=== PATIENT | female | born 1995 | race American Indian/Alaskan Native ===

== ENCOUNTER 2016-12-12 02:13 | Inpatient (IN) | payer MEDICAID ==
[2016-12-12] MEDS ORDERED: Lactated Ringers 1,000 ML ONE (02:53)
[2016-12-12] MEDS: Lactated Ringers 1,000 ML IV SCH ×5 (03:30→20:22)
[2016-12-12] MEDS ORDERED: Lidocaine 1% 50 ML MDV INJECT ONE (04:14)
[2016-12-12] MEDS ORDERED: Ondansetron 4 MG/2 ML SDV IVPUSH PRN (04:14)
[2016-12-12] MEDS ORDERED: Nalbuphine 20 MG/1 ML Amp IVPUSH PRN (04:14)
[2016-12-12] MEDS ORDERED: Sodium Chloride 0.9% 10 ML Syringe FLUSH PRN (04:14)
[2016-12-12] MEDS ORDERED: Oxytocin/Lactated Ringers 10 UNIT/1,000 ML BAG IV SCH ×3 (04:15→19:45)
[2016-12-12] MEDS ORDERED: ePHEDrine 50 MG/ML SDV IVPUSH PRN (08:13)
[2016-12-12] MEDS ORDERED: diphenhydrAMINE 50 MG/ML SDV IVPUSH PRN (08:13)
[2016-12-12] MEDS ORDERED: fentaNYL 100 MCG/2 ML SDV EPIDUR PRN (08:13)
[2016-12-12] MEDS ORDERED: Bupivacaine/fentaNYL/NS 100 ML Bag EPIDUR SCH (08:15)
--- NOTE | 2016-12-12 08:57 | PCM.PREANE ---
Preanesthetic Assessment - Anesthesia/Transfusion/Family Hx Anesthesia History: Prior Anesthesia Without Reaction Family History of Anesthesia Reaction: No Transfusion History: No Prior Transfusion(s) - Review of Systems General: No Symptoms Pulmonary: No Symptoms Cardiovascular: No Symptoms, Dyspnea on Exertion Gastrointestinal: No symptoms Neurological: No Symptoms Other: Reports: None - Physical Assessment Pulse: 84 O2 Sat by Pulse Oximetry: 92 Respiratory Rate: 20 Blood Pressure: 124/63 Temperature: 36.6 C Height: 1.73 m Weight: 134.263 kg ASA Class: 2 Mental Status: Alert & Oriented x3 Airway Class: Mallampati = 1 Dentition: Reports: Normal Dentition Thyro-Mental Finger Breadths: 3 Mouth Opening Finger Breadths: 3 ROM/Head Extension: Full Lungs: Clear to auscultation, Normal respiratory effort Cardiovascular: Regular Rate, Regular Rhythm - Lab Values: Laboratory Last Values WBC 14.02 K/mm3 (3.98-10.04) H 12/12/16 04:34 RBC 3.76 M/mm3 (3.98-5.22) L 12/12/16 04:34 Hgb 10.9 gm/L (11.2-15.7) L 12/12/16 04:34 Hct 32.6 % (34.1-44.9) L 12/12/16 04:34 MCV 86.7 fl (79.4-94.8) 12/12/16 04:34 MCH 29.0 pg (25.6-32.2) 12/12/16 04:34 MCHC 33.4 g/dl (32.2-35.5) 12/12/16 04:34 RDW Std Deviation 42.8 fL (36.4-46.3) 12/12/16 04:34 Plt Count 255 K/mm3 (182-369) 12/12/16 04:34 MPV 10.0 fl (9.4-12.3) 12/12/16 04:34 Neut % (Auto) 82.0 % (34.0-71.1) H 12/12/16 04:34 Lymph % (Auto) 11.6 % (19.3-51.7) L 12/12/16 04:34 [place] % (Auto) 6.0 % (4.7-12.5) 12/12/16 04:34 Eos % (Auto) 0.1 (0.7-5.8) L 12/12/16 04:34 Baso % (Auto) 0.1 % (0.1-1.2) 12/12/16 04:34 Neut # (Auto) 11.50 K/mm3 (1.56-6.13) H 12/12/16 04:34 Lymph # (Auto) 1.63 K/mm3 (1.18-3.74) 12/12/16 04:34 [place] # (Auto) 0.84 K/mm3 (0.24-0.36) H 12/12/16 04:34 Eos # (Auto) 0.01 K/mm3 (0.04-0.36) L 12/12/16 04:34 Baso # (Auto) 0.01 K/mm3 (0.01-0.08) 12/12/16 04:34 - Allergies Allergies/Adverse Reactions: Allergies Allergy/AdvReac Type Severity Reaction Status Date / Time No Known Allergies Allergy Verified 12/12/16 06:39 - Acknowledgements Anesthesia Type Planned: Epidural Pt an Appropriate Candidate for the Planned Anesthesia: Yes Alternatives and Risks of Anesthesia Discussed w Pt/Guardian: Yes Pt/Guardian Understands and Agrees with Anesthesia Plan: Yes PreAnesthesia Questionnaire Gastrointestinal History: Reports: GERD 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: - SUBSTANCE USE Smoking Status *Q: Never Smoker Second Hand Smoke Exposure: No - HOME MEDS Home Medications: Home Meds PNV95/Ferrous Fumarate/FA [ Tablet] 1 each PO DAILY 10/28/16 [History] - CURRENT (IN HOUSE) MEDS Current Meds: Current Medications Diphenhydramine HCl (Benadryl) 25 mg IVPUSH Q6H PRN PRN Reason: Itching Ephedrine Sulfate (Ephedrine Sulfate) 5 mg IVPUSH ASDIRECTED PRN PRN Reason: HYPOTENTSION Fentanyl (Sublimaze) 100 mcg EPIDUR Q3H PRN PRN Reason: PAIN Last Admin: 12/12/16 08:43 Dose: 100 mcg Fentanyl/Bupivacaine HCl (Fentanyl/Bupivacaine/Ns 2 Mcg-0.125% 100 Ml) 100 ml EPIDUR ASDIRECTED ALBERTO Last Admin: 12/12/16 08:44 Dose: 100 ml Lactated Ringer's (Ringers, Lactated) 1,000 mls @ 100 mls/hr IV ASDIRECTED ALBERTO Last Admin: 12/12/16 08:04 Dose: 100 mls/hr Oxytocin/Lactated Ringer's (Pitocin In Lr 10 Units/1,000 Ml) 10 unit in 1,000 mls @ 500 mls/hr IV TITRATE ALBERTO Nalbuphine HCl (Nubain) 10 mg IVPUSH Q2H PRN PRN Reason: Pain (moderate 4-6) Ondansetron HCl (Zofran) 4 mg IVPUSH Q4H PRN PRN Reason: Nausea/Vomiting Sodium Chloride (Saline Flush) 10 ml FLUSH ASDIRECTED PRN PRN Reason: Keep Vein Open Discontinued Medications Lactated Ringer's (Ringers, Lactated) Confirm Administered Dose 1,000 mls @ as directed .ROUTE .STK-MED ONE Stop: 12/12/16 02:54 Last Admin: 12/12/16 06:53 Dose: Not Given Lidocaine HCl (Xylocaine 1%) 50 ml INJECT ONETIME ONE Stop: 12/12/16 04:15 Last Admin: 12/12/16 06:54 Dose: Not Given
--- NOTE | 2016-12-12 13:46 | PCM.PNLD ---
Labor Progress Note - VS & Meds Vital Signs: Last Vital Signs Temp 36.6 C 12/12/16 08:57 Pulse 84 12/12/16 08:57 Resp 20 12/12/16 08:57 BP 124/63 12/12/16 08:57 Pulse Ox 92 L 12/12/16 08:57 Active Medications: Current Medications Diphenhydramine HCl (Benadryl) 25 mg IVPUSH Q6H PRN PRN Reason: Itching Ephedrine Sulfate (Ephedrine Sulfate) 5 mg IVPUSH ASDIRECTED PRN PRN Reason: HYPOTENTSION Fentanyl (Sublimaze) 100 mcg EPIDUR Q3H PRN PRN Reason: PAIN Last Admin: 12/12/16 08:43 Dose: 100 mcg Fentanyl/Bupivacaine HCl (Fentanyl/Bupivacaine/Ns 2 Mcg-0.125% 100 Ml) 100 ml EPIDUR ASDIRECTED ALBERTO Last Admin: 12/12/16 08:44 Dose: 100 ml Lactated Ringer's (Ringers, Lactated) 1,000 mls @ 100 mls/hr IV ASDIRECTED [facility] Last Admin: 12/12/16 08:59 Dose: 100 mls/hr Oxytocin/Lactated Ringer's (Pitocin In Lr 10 Units/1,000 Ml) 10 unit in 1,000 mls @ 500 mls/hr IV TITRATE [facility] Nalbuphine HCl (Nubain) 10 mg IVPUSH Q2H PRN PRN Reason: Pain (moderate 4-6) Ondansetron HCl (Zofran) 4 mg IVPUSH Q4H PRN PRN Reason: Nausea/Vomiting Sodium Chloride (Saline Flush) 10 ml FLUSH ASDIRECTED PRN PRN Reason: Keep Vein Open Discontinued Medications Lactated Ringer's (Ringers, Lactated) Confirm Administered Dose 1,000 mls @ as directed .ROUTE .STK-MED ONE Stop: 12/12/16 02:54 Last Admin: 12/12/16 06:53 Dose: Not Given Lidocaine HCl (Xylocaine 1%) 50 ml INJECT ONETIME ONE Stop: 12/12/16 04:15 Last Admin: 12/12/16 06:54 Dose: Not Given - Uterine Contractions Contraction Intensity: Mild to Moderate Uterine Resting Tone: Soft - Monitoring Monitor Mode: External Ultrasound Heart Rate (FHR) Variability: Moderate (6-25 bmp) Accelerations: Present, 15x15 Decelerations: None Strip Review: Category I - Vaginal Exam Dilation (cm): 5-6 Effacement (Percent): 100 Station: -2 Cervical Position: Midposition Sterile Vaginal Exam Performed By: 5- - Labor Progress (Free Text) Labor Progress: Contractions slower since epidural. Start pitocin
[2016-12-12] MEDS ORDERED: Methylergonovine 0.2 MG/1 ML Amp IM ONE (18:15)
[2016-12-12] MEDS ORDERED: Misoprostol 200 MCG Tab PO ONE (18:15)
[2016-12-12] MEDS ORDERED: Methylergonovine 0.2 MG/1 ML Amp ONE (18:16)
[2016-12-12] MEDS ORDERED: Misoprostol 200 MCG Tab ONE (18:22)
[2016-12-12] MEDS ORDERED: Docusate Sodium 100 MG Cap PO PRN (19:36)
[2016-12-12] MEDS: Ibuprofen 600 MG Tab PO PRN (20:44)
[2016-12-12] MEDS ORDERED: Benzocaine/Menthol 20%-0.5% Spray 56 GM Canister TOP PRN (21:03)
[2016-12-12] MEDS ORDERED: Witch Hazel Medicated Pads 100/Jar TOP PRN (21:03)
--- NOTE | 2016-12-13 09:01 | PCM48HPAN ---
Post Anesthesia Note - EVALUATION WITHIN 48HRS OF ANESTHETIC Vital Signs in Normal Range: Yes Patient Participated in Evaluation: Yes Respiratory Function Stable: Yes Airway Patent: Yes Cardiovascular Function Stable: Yes Hydration Status Stable: Yes Pain Control Satisfactory: Yes Nausea and Vomiting Control Satisfactory: Yes Mental Status Recovered: Yes
[2016-12-13] MEDS: Ibuprofen 600 MG Tab PO PRN (11:36)
--- NOTE | 2016-12-14 04:09 | PCM.DCSUM1 ---
Discharge Summary - Hospital Course Brief History: Admitted in labor. Unremarkable labor. hemorrage with significant anemia. - Discharge Data Discharge Date: 12/14/16 Discharge Disposition: Home, Self-Care 01 Condition: Good - Patient Summary/Data Hospital Course: Anemia well tolerated. - Patient Instructions Diet: Usual Diet as Tolerated Diet, Other: high iron/red meat/green leafy Driving: Do Not Drive Notify Provider of: Fever, Increased Pain, Swelling and Redness, Drainage, Nausea and/or Vomiting - Discharge Plan Home Medications: Home Meds PNV95/Ferrous Fumarate/FA [ Tablet] 1 each PO DAILY 10/28/16 [History] Referrals: Anabelle Naidu MD [Primary Care Provider] - (1 week, cbc at that time ) - Discharge Summary/Plan Comment DC Time >30 min.: No - General Info Date of Service: 12/14/16 Functional Status: Reports: pain controlled - Review of Systems General: Reports: Fatigue HEENT: Reports: no symptoms Pulmonary: Reports: no symptoms Cardiovascular: Reports: No Symptoms Gastrointestinal: Reports: No symptoms Genitourinary: Reports: no symptoms Musculoskeletal: Reports: no symptoms Skin: Reports: no symptoms Neurological: Reports: No Symptoms Psychiatric: Reports: no symptoms - Patient Data Vitals - Most Recent: Last Vital Signs Temp 36.6 C 12/13/16 19:53 Pulse 79 12/13/16 19:53 Resp 18 12/13/16 19:53 BP 121/81 12/13/16 19:53 Pulse Ox 98 12/13/16 19:53 Weight - Most Recent: 134.263 kg I&O - Last 24 hours: Intake & Output 12/13/16 12/13/16 12/14/16 14:59 22:59 06:59 Intake Total 400 480 Output Total 900 Balance -500 480 Lab Results - Last 24 hrs: Laboratory Results - last 24 hr 12/12/16 12/13/16 Range/Units 04:23 04:55 WBC 14.69 H (3.98-10.04) K/mm3 RBC 2.42 L (3.98-5.22) M/mm3 Hgb 6.9 L* (11.2-15.7) gm/L Hct 21.4 L (34.1-44.9) % MCV 88.4 (79.4-94.8) fl MCH 28.5 (25.6-32.2) pg MCHC 32.2 (32.2-35.5) g/dl RDW Std Deviation 43.0 (36.4-46.3) fL Plt Count 196 (182-369) K/mm3 MPV 10.1 (9.4-12.3) fl Neut % (Auto) 78.4 H (34.0-71.1) % Lymph % (Auto) 14.4 L (19.3-51.7) % [place] % (Auto) 6.7 (4.7-12.5) % Eos % (Auto) 0.1 L (0.7-5.8) Baso % (Auto) 0.1 (0.1-1.2) % Neut # (Auto) 11.52 H (1.56-6.13) K/mm3 Lymph # (Auto) 2.12 (1.18-3.74) K/mm3 [place] # (Auto) 0.99 H (0.24-0.36) K/mm3 Eos # (Auto) 0.01 L (0.04-0.36) K/mm3 Baso # (Auto) 0.01 (0.01-0.08) K/mm3 Manual Slide Review Abnormal smear Blood Type A POSITIVE Gel Antibody Screen Negative Med Orders - Current: Current Medications Benzocaine/Menthol (Dermoplast Pain Relief [place]) 56 gm TOP ASDIRECTED PRN PRN Reason: Perineal Comfort Measure Last Admin: 12/12/16 21:15 Dose: 1 applic Docusate Sodium (Colace) 100 mg PO BID PRN PRN Reason: Constipation Last Admin: 12/12/16 20:44 Dose: 100 mg Oxytocin/Lactated Ringer's (Pitocin In Lr 10 Units/1,000 Ml) 10 unit in 1,000 mls @ 125 mls/hr IV ASDIRECTED ALBERTO PRN Reason: Protocol Last Admin: 12/12/16 19:30 Dose: 125 mls/hr Ibuprofen (Motrin) 600 mg PO Q6H PRN PRN Reason: Mild pain or fever Last Admin: 12/13/16 11:36 Dose: 600 mg Witch Ronna (Tucks) 1 pad TOP ASDIRECTED PRN PRN Reason: Perineal Comfort Measure Last Admin: 12/12/16 22:15 Dose: 1 applic Discontinued Medications Diphenhydramine HCl (Benadryl) 25 mg IVPUSH Q6H PRN PRN Reason: Itching Ephedrine Sulfate (Ephedrine Sulfate) 5 mg IVPUSH ASDIRECTED PRN PRN Reason: HYPOTENTSION Fentanyl (Sublimaze) 100 mcg EPIDUR Q3H PRN PRN Reason: PAIN Last Admin: 12/12/16 08:43 Dose: 100 mcg Fentanyl/Bupivacaine HCl (Fentanyl/Bupivacaine/Ns 2 Mcg-0.125% 100 Ml) 100 ml EPIDUR ASDIRECTED ALBERTO Last Admin: 12/12/16 08:44 Dose: 100 ml Lactated Ringer's (Ringers, Lactated) Confirm Administered Dose 1,000 mls @ as directed .ROUTE .STK-MED ONE Stop: 12/12/16 02:54 Last Admin: 12/12/16 06:53 Dose: Not Given Lactated Ringer's (Ringers, Lactated) 1,000 mls @ 100 mls/hr IV ASDIRECTED ALBERTO Last Admin: 12/12/16 20:22 Dose: 100 mls/hr Oxytocin/Lactated Ringer's (Pitocin In Lr 10 Units/1,000 Ml) 10 unit in 1,000 mls @ 500 mls/hr IV TITRATE ALBERTO Oxytocin/Lactated Ringer's (Pitocin In Lr 10 Units/1,000 Ml) 10 unit in 1,000 mls @ 12 mls/hr IV TITRATE ALBERTO; 2 MUNITS/MIN PRN Reason: Protocol Last Titration: 12/12/16 18:30 Dose: 999 mls/hr Lidocaine HCl (Xylocaine 1%) 50 ml INJECT ONETIME ONE Stop: 12/12/16 04:15 Last Admin: 12/12/16 06:54 Dose: Not Given Methylergonovine Maleate (Methergine) Confirm Administered Dose 0.2 mg .ROUTE .STK-MED ONE Stop: 12/12/16 18:17 Last Admin: 12/12/16 22:56 Dose: Not Given Methylergonovine Maleate (Methergine) 0.2 mg IM ONETIME ONE Stop: 12/12/16 18:16 Last Admin: 12/12/16 18:22 Dose: 0.2 mg Misoprostol (Cytotec) Confirm Administered Dose 800 mcg .ROUTE .STK-MED ONE Stop: 12/12/16 18:23 Last Admin: 12/12/16 22:56 Dose: Not Given Misoprostol (Cytotec) 800 mcg PO ONETIME ONE Stop: 12/12/16 18:16 Last Admin: 12/12/16 18:22 Dose: 800 mcg Nalbuphine HCl (Nubain) 10 mg IVPUSH Q2H PRN PRN Reason: Pain (moderate 4-6) Ondansetron HCl (Zofran) 4 mg IVPUSH Q4H PRN PRN Reason: Nausea/Vomiting Sodium Chloride (Saline Flush) 10 ml FLUSH ASDIRECTED PRN PRN Reason: Keep Vein Open - Exam General: Reports: alert, oriented HEENT: Reports: Pupils equal, Pupils reactive, EOMI, Mucous membr. moist/pink Neck: Reports: supple Lungs: Reports: Clear to auscultation, Normal respiratory effort Cardiovascular: Reports: Regular Rate, Regular Rhythm Abdomen: Reports: bowel sounds present, soft, no tenderness, no distension (Female) Exam: Normal External Exam Back Exam: Reports: Normal Inspection, Full Range of Motion Extremities: Reports: no edema, normal pulses Skin: Reports: warm, dry, intact Wound/Incisions: Reports: healing well Neurological: Reports: no new focal deficit Psy/Mental Status: Reports: alert, normal affect, normal mood *Q Meaningful Use (DIS) - VTE *Q VTE Criteria *Q: - Stroke *Q Stroke Criteria *Q: - AMI *Q AMI Criteria *Q:
[2016-12-14] MEDS: Ibuprofen 600 MG Tab PO PRN (04:59)
[2016-12-14] MEDS ORDERED: Sodium Chloride 0.9% 500 ML IV ONE (09:32)
[2016-12-14 23:57] VITALS: BP 124/66
== END 2016-12-14 20:55 | disposition home or self-care (01) | DRG 774 ==
LOC: JD.OBCHECK 02:13 → JD.OB 02:17 → JD.OBCHECK 04:28 → JD.OB 04:28 → OBSVTOIN 18:11 → JD.OB 18:11
PROVIDERS: ADMIT Obstetrics & Gynecology; ATTEND Obstetrics & Gynecology
PROC: 10E0XZZ Delivery of Products of Conception, External Approach (ICD-10-PCS; principal; 2016-12-12)
PROC: 0KQM0ZZ Repair Perineum Muscle, Open Approach (ICD-10-PCS; 2016-12-12)
PROC: 10907ZC Drainage of Amniotic Fluid, Therapeutic from Products of Conception, Via Natural or Artificial Opening (ICD-10-PCS; 2016-12-12)
PROC: 00HU33Z Insertion of Infusion Device into Spinal Canal, Percutaneous Approach (ICD-10-PCS; 2016-12-12)
PROC: 3E0R3CZ (ICD-10-PCS; 2016-12-12)
DX: O70.1 Second degree perineal laceration during delivery (principal); O72.1 Other immediate postpartum hemorrhage; Z37.0 Single live birth; Z3A.41 41 weeks gestation of pregnancy; Z87.891 Personal history of nicotine dependence; D64.9 Anemia, unspecified
CPT/HCPCS: 01967; 36415; 36430; 85025; 85027; 86850; 86900; 86901; 86922; A9270-GY; J2210; J2590; J3010; J7120; P9016

== ENCOUNTER 2021-03-25 20:50 | Emergency (ER) | payer MEDICAID, OTHER ==
[2021-03-25 20:59] VITALS: BP 146/83; PULSE 64
--- NOTE | 2021-03-25 21:24 | EDM.PDOC ---
ED HPI GENERAL MEDICAL PROBLEM - General Chief Complaint: Abdominal Pain Stated Complaint: ORACIO MONTALVO AMB Time Seen by Provider: 03/25/21 21:10 Source of Information: Reports: Patient, Provider (Dr. Estrella from [facility] ([place])), RN Notes Reviewed History Limitations: Reports: No Limitations - History of Present Illness INITIAL COMMENTS - FREE TEXT/NARRATIVE: Patient is a 25-year-old female who presents to the ER via [facility] ambulance for the evaluation of her left lower quadrant abdominal pain. Patient notes that this started earlier today, she took some Tylenol and it did not help much. She called the ambulance and went to the [facility], and had a CT and some labs, she found out that she was not , and that she had a 10.2 cm cyst on her left adnexa. She was supposed to go to [facility] in [place] for further evaluation however the patient did not want to go to [place] so she presents to the ER here for further evaluation. I was able to speak with Dr. Estrella, the provider on at [place] and she states that WATERSHED PROGRAM MANAGER at [place] suggested a non-OB transvaginal ultrasound to rule out ovarian torsion. Patient states she was given some morphine when she was initially seen, and then given a dose of morphine just prior to leaving in the ambulance for coming to [place]. Patient denies any other sick-like symptoms, fever/chills, cough/shortness of breath, nausea/vomiting/diarrhea. States that she is on her menses and this started 2 days ago. 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 MANAGER History: Reports: Neurological History: Reports: Migraines Psychiatric History: Reports: Anxiety - Infectious Disease History Infectious Disease History: Reports: Chicken Pox Social & Family History - Family History Family Medical History: No Pertinent Family History - Tobacco Use Tobacco Use Status *Q: Never Tobacco User Second Hand Smoke Exposure: Yes - Caffeine Use Caffeine Use: Reports: Coffee - Alcohol Use Number of Drinks Per Day: 3 - Recreational Drug Use Recreational Drug Use: No ED ROS GENERAL - Review of Systems Review Of Systems: Comprehensive ROS is negative, except as noted in HPI. ED EXAM, RENAL/ - Physical Exam Exam: See Below Exam Limited By: No Limitations General Appearance: Alert, WD/WN, No Apparent Distress Respiratory/Chest: No Respiratory Distress, Lungs Clear, Normal Breath Sounds, No Accessory Muscle Use, Chest Non-Tender Cardiovascular: Normal Peripheral Pulses, Regular Rate, Rhythm, No Edema GI/Abdominal: Normal Bowel Sounds, Soft, No Distention, No Mass, Tender (LLQ with deep palpation) Extremities: Normal Inspection, Normal Capillary Refill Neurological: Alert, Oriented, Normal Cognition, No Motor/Sensory Deficits Psychiatric: Normal Affect, Normal Mood Skin Exam: Warm, Dry, Intact, Normal Color, No Rash Course - Vital Signs Last Recorded V/S: Last Vital Signs Temp 97 F 03/25/21 20:58 Pulse 64 03/25/21 20:58 Resp 14 03/25/21 20:58 BP 146/83 H 03/25/21 20:58 Pulse Ox 96 03/25/21 20:58 - Orders/Labs/Meds Orders: Active Orders 24 hr Category Date Time Status Vaccine to be Administered/Admin Charge [] ASDIRECTED Care 03/25/21 21:06 Active Transvaginal Non OB [US] Stat Exams 03/25/21 21:06 Taken Meds: Medications Discontinued Medications Generic Name Dose Route Start Last Admin Trade Name Alireza PRN Reason Stop Dose Admin Influenza Virus Vaccine 1 each 03/25/21 21:06 Pharmacy To Dose - Influenza Vaccine IM 03/25/21 21:07 ONETIME ONE Influenza Virus Vaccine 60 mcg 03/25/21 21:15 03/26/21 00:20 Flu Vacc [id number](6mos Up)/Pf 60 Mcg/0.5 Ml Syringe IM 03/25/21 21:16 60 mcg .ONCE ONE Administration - Re-Assessments/Exams Free Text/Narrative Re-Assessment/Exam: 03/25/21 21:23 Patient presents to the ER for a non-OB transvaginal ultrasound to rule out ovarian torsion in nature. This has been ordered. Patient states she is pain- free at this time. 03/26/21 00:02 Patient's ultrasound has been obtained, there is no sign of ovarian torsion. The left ovary contains at least 3 cysts, one measures 13 x 9 x 7 cm, 7 x 7 x 9 cm, and 7 x 5 x 6 cm. Since we have ruled out ovarian torsion, the patient poses no surgical threat at today's visit. We will go ahead and discharge her home and have her follow-up with an WATERSHED PROGRAM MANAGER. She would prefer a female so I will refer her either to Dr. Naidu or Dr. Martini for ongoing management. Departure - Departure Time of Disposition: 00:06 Disposition: Home, Self-Care 01 Condition: Good Clinical Impression: Ovarian cyst Qualifiers: Laterality: left Qualified Code(s): N83.202 - Unspecified ovarian cyst, left side - Discharge Information *PRESCRIPTION DRUG MONITORING PROGRAM REVIEWED*: Yes *COPY OF PRESCRIPTION DRUG MONITORING REPORT IN PATIENT ALLA: No Prescriptions: oxyCODONE HCl/Acetaminophen [Oxycodone-Acetaminophen 5-325] 1 tab PO Q6H #10 tablet Instructions: Ovarian Cyst, Chet-[id number] Referrals: Love Martini MD [Physician] - Anabelle Naidu MD [Physician] - Forms: ED Department Discharge, ED Return to Work/School Form Additional Instructions: You were evaluated in the ER today for your lower abdominal pain. You were sent to our facility to have an ultrasound to rule out ovarian torsion, and there was no sign of ovarian torsion on the ultrasound. You do however have 3 large ovarian cyst on the left side, one measures 13 x 9 x 7 cm, 7 x 7 x 9 cm, and 7 x 5 x 6 cm. You will need to follow-up with WATERSHED PROGRAM MANAGER for ongoing management of this, to see if you are a surgical candidate, or if they would recommend you do some watchful waiting. Please call [facility] at [phone] to obtain an appointment with Dr. Martini or Dr. Naidu for ongoing management. You may take 500 mg Tylenol or 600 mg ibuprofen every 6 hours as needed for ongoing pain management. Do not exceed 4000 mg Tylenol or 3200 mg ibuprofen in a 24-hour time span. You were given a prescription for a strong pain medication, oxycodone/acetaminophen 5/325 mg, please take 1 tab every 6 hours as needed for pain not relieved by Tylenol or ibuprofen alone. Please note this medication does contain Tylenol in it, so do not take more than 4000 mg in a 24-hour time span. These medications can be addictive, so please take as few as possible to achieve adequate pain control. These meds can also be quite constipating, recommend that you increase your oral fluid intake and take a stool softener like MiraLAX while taking these medications. Do not drive while taking this medication. Your prescription was electronically sent to [facility] pharmacy located near [facility], this pharmacy is only open from 12 to 4 PM on Sundays, you will need to go there during this timeframe to obtain this medication and take as prescribed. Do not hesitate to return to the ER at any time if symptoms change or worsen. Sepsis Event Note (ED) - Evaluation Sepsis Screening Result: No Definite Risk - Focused Exam Vital Signs: Vital Signs Temp Pulse Resp BP Pulse Ox 03/25/21 20:58 97 F 64 14 146/83 H 96 - My Orders Last 24 Hours: My Active Orders 03/25/21 21:06 Vaccine to be Administered/Admin Charge [RC] ASDIRECTED Transvaginal Non OB [US] Stat - Assessment/Plan Last 24 Hours: My Active Orders 03/25/21 21:06 Vaccine to be Administered/Admin Charge [RC] ASDIRECTED Transvaginal Non OB [US] Stat
--- NOTE | 2021-03-26 10:21 | US ---
Pelvic ultrasound: Multiple real-time images were obtained transvaginally. Comparison: No prior pelvic ultrasound is available. Uterus is anteverted. Endometrial thickness is 8.0 mm. Nabothian cysts are noted within the cervix. Right ovary is not well seen. Numerous cysts are seen within the left ovary with largest cyst measuring up to 9.1 cm and second largest cyst measuring up to 6.8 cm. Additional smaller cyst is seen. No free fluid is seen. Measurements: Left ovary (including cysts): 12.8 x 8.7 x 7.2 cm Uterus: Length 8.6 cm, transverse width 4.9 cm, AP height 3.4 cm Impression: 1. Cysts within the left ovary with largest cysts as measured above. No definite findings of torsion are seen. 2. Nonvisualized right ovary. 3. Incidental nabothian cysts. Diagnostic code #3 I agree with preliminary report from [facility], finalized on 03/26/21, 12:54 AM CDT, code 1
== END 2021-03-26 00:30 | disposition home or self-care (01) ==
LOC: JD.ED 20:50
DX: N83.202 Unspecified ovarian cyst, left side (principal); Z77.22 Contact with and (suspected) exposure to environmental tobacco smoke (acute) (chronic); Z23 Encounter for immunization
CPT/HCPCS: 76830; 76830-26; 90686; 99284-25; G0008